=== PATIENT | male | born 2000 | race African-American/Black ===

== ENCOUNTER 2023-08-02 20:17 | Emergency (ER) | payer MEDICAID ==
[~2023-08-02] VITALS: Ht 172.7 cm; Wt 70.0 kg
[2023-08-02 20:21] VITALS: BP 144/90; PULSE 81; RESP 16; TEMP 98.5; O2SAT 98
[2023-08-03] MEDS ORDERED: TOPUD PO (08:40)
== END 2023-08-02 22:25 | disposition left against medical advice (07) ==
LOC: ER 20:17
DX: Z53.21 Procedure and treatment not carried out due to patient leaving prior to being seen by health care provider (principal)
CPT/HCPCS: 99281

== ENCOUNTER 2023-08-03 03:45 | Emergency (ER) | payer MEDICAID ==
[~2023-08-03] VITALS: Ht 180.3 cm; Wt 63.5 kg
[2023-08-03 04:08] VITALS: O2SAT 97
[2023-08-03 07:15] VITALS: BP 126/81
[2023-08-03] MEDS ORDERED: OXYCODONE HCL/ACETAMINOPHEN 5/325MG TABLET PO ONE (07:15)
[2023-08-03 07:59] LABS: HEMATOCRIT. 49.5 % (42.0-52.0); HEMOGLOBIN. 17.2 g/dL (14.0-18.0); MEAN CORPUSCULAR HEMOGLOBIN 32.8 pg (28.0-32.0); MEAN CORPUSCULAR HGB CONC 34.7 g/dL (31.0-37.0); MEAN CORPUSCULAR VOLUME 94.4 fL (80.0-94.0); MEAN PLATELET VOLUME 7.9 fl (7.4-10.4); PLATELET 353 x1000/uL (130-400); RED BLOOD CELL COUNT 5.25 mill/uL (4.7-6.1); RED CELL DISTRIBUTION WIDTH 13.1 % (11.6-14.6); WHITE BLOOD COUNT 9.4 x1000/uL (4.5-11.0)
[2023-08-03 08:14] LABS: ALANINE AMINOTRANSFERASE 12 IU/L (10-49); ALBUMIN 4.9 g/dL (3.2-4.8); ASPARTATE AMINOTRANSFERASE 14 IU/L (<34); BILIRUBIN TOTAL 1.1 mg/dL (0.1-1.0); CALCIUM 9.8 mg/dL (8.7-10.4); CARBON DIOXIDE 29 mEq/L (21-32); CHLORIDE 101 mEq/L (98-107); CREATININE 0.9 mg/dL (0.6-1.3); GLUCOSE 74 mg/dL (70-105); POTASSIUM 4.2 mEq/L (3.5-5.1); PROTEIN TOTAL 8.5 g/dL (6.0-8.3); SODIUM 139 mEq/L (136-145); UREA NITROGEN BLOOD 9 mg/dL (9-23)
[2023-08-03 08:23] LABS: DIFFERENTIAL COMMENT 1
[2023-08-03] MEDS ORDERED: TOPUD PO (08:40)
[2023-08-03 08:58] VITALS: PULSE 82; RESP 18; TEMP 99
[2023-08-03 13:06] LABS: PLATELET ESTIMATE NORMAL
== END 2023-08-03 09:10 | disposition home or self-care (01) ==
LOC: ER 03:45
DX: M54.9 Dorsalgia, unspecified (principal)
CPT/HCPCS: 36415; 71045; 72100; 80053; 85025; 99284